=== PATIENT | male | born 1970 | race Caucasian/White ===

== ENCOUNTER 2018-02-14 13:51 | Emergency (ER) | payer OTHER ==
[2018-02-14 14:51] VITALS: BP 106/59
--- NOTE | 2018-02-14 14:57 | UC ---
Hand/Wrist HPI - HPI Summary HPI Summary: Crush injury 6 days ago right third finger---painful to make fist - History Of Current Complaint Chief Complaint: UCUpperExtremity Stated Complaint: FINGER INJURY Time Seen by Provider: 02/14/18 14:56 Hx Obtained From: Patient ?: No Mechanism Of Injury: crush injury Onset/Duration: Sudden Onset, Lasting Days - 6, Still Present Pain Intensity: 5 Pain Scale Used: 0-10 Numeric Character Of Pain: Aching, Throbbing Aggravating Factor(s): Movement Alleviating Factor(s): Nothing Associated Signs And Symptoms: Positive: Swelling Related History: Dominant Hand Right - Allergies/Home Medications Allergies/Adverse Reactions: Allergies Allergy/AdvReac Type Severity Reaction Status Date / Time No Known Allergies Allergy Verified 02/14/18 14:45 PMH/Surg Hx/FS Hx/Imm Hx Previously Healthy: Yes - Surgical History Surgical History: Yes Surgery Procedure, Year, and Place: Menisectomy r knee - Family History Known Family History: Positive: None - Social History Occupation: Employed Full-time Lives: With Family Alcohol Use: None Substance Use Type: None Substance Use Comment - Amount & Last Used: last use 12/10/15 Smoking Status (MU): Heavy Every Day Tobacco Smoker Amount Used/How Often: 1 PPD - Immunization History Most Recent Influenza Vaccination: early Jul 2013 Review of Systems Constitutional: Negative Skin: Negative Eyes: Negative ENT: Negative Respiratory: Negative Cardiovascular: Negative Gastrointestinal: Negative Genitourinary: Negative Motor: Decreased ROM - right third finger Neurovascular: Negative Musculoskeletal: Arthralgia - right 3rd finger Neurological: Negative Psychological: Negative Is Patient Immunocompromised?: No All Other Systems Reviewed And Are Negative: Yes Physical Exam Triage Information Reviewed: Yes Appearance: Well-Appearing, No Pain Distress, Well-Nourished Vital Signs: Initial Vital Signs Temp 98.4 F 02/14/18 14:45 Pulse 65 02/14/18 14:45 Resp 18 02/14/18 14:45 BP 106/59 02/14/18 14:45 Pulse Ox 98 02/14/18 14:45 Vital Signs Reviewed: Yes Eye Exam: Normal Eyes: Positive: Conjunctiva Clear ENT Exam: Normal ENT: Positive: Normal ENT inspection, Hearing grossly normal. Negative: Trismus , Muffled voice, Hoarse voice Dental Exam: Normal Neck exam: Normal Neck: Positive: Supple, Nontender Respiratory Exam: Normal Respiratory: Positive: Chest non-tender, No respiratory distress, No accessory muscle use Cardiovascular Exam: Normal Cardiovascular: Positive: RRR, Pulses Normal, Brisk Capillary Refill Musculoskeletal Exam: Other Musculoskeletal: Positive: ROM Limited @ - right 3rd finger, Edema @ - right third finger Neurological Exam: Normal Neurological: Positive: Alert, Muscle Tone Normal Psychological Exam: Normal Psychological: Positive: Normal Response To Family Skin Exam: Normal Diagnostics - Radiology No standard instances Xray Interpretation: Positive (See Comments) - fusifirm swelling Radiology Interpretation Completed By: Radiologist Hand/Wrist Course/Dx - Course Course Of Treatment: splint,elevation, keflex follow with Dr. Neumann as needed - Differential Dx/Diagnosis Provider Diagnoses: cellulitis right third finger Discharge - Sign-Out/Discharge Documenting (check all that apply): Patient Departure - Discharge Plan Condition: Stable Disposition: HOME Prescriptions: Cephalexin CAP* [Keflex CAP*] 500 mg PO QID #40 cap Patient Education Materials: Cellulitis (ED), Warm Compress or Soak (ED) Referrals: Italo Neumann MD [Primary Care Provider] - If Needed - Billing Disposition and Condition Condition: STABLE Disposition: Home
[2018-02-14] MEDS ORDERED: Tetan/Diph/Pertus SYR(Tdap)* 0.5 ML SYR(BOOSTRIX) use SYR IM ONE (15:02)
--- NOTE | 2018-02-14 15:29 | RAD ---
Indication: Anterior RIGHT third digit pain following crush injury 6 days ago. Comparison: No relevant prior exams available on the [facility] [place]. Technique: 3 views RIGHT third finger REPORT AND IMPRESSION: Fusiform soft tissue swelling. No conspicuous foreign body or subcutaneous emphysema. Negative for fracture or malalignment.
== END 2018-02-14 16:15 | disposition home or self-care (01) ==
LOC: UCEAST 13:51
DX: L03.011 Cellulitis of right finger (principal); Z23 Encounter for immunization; F17.210 Nicotine dependence, cigarettes, uncomplicated
CPT/HCPCS: 73140; 90715; 99212; G0463

== ENCOUNTER 2018-05-31 08:33 | Emergency (ER) | payer OTHER ==
[2018-05-31 08:47] VITALS: BP 104/64
[2018-05-31] MEDS ORDERED: Albuterol 2.5 MG/3 ML NEB.SOL* (0.083%) INH ONE (09:06)
--- NOTE | 2018-05-31 09:10 | ED ---
Respiratory - HPI Summary HPI Summary: cough , chills, in the last several days. cough producitive of greenish sputum. has had some wheezing and dyspnea with activity. this is not normally the case. smoking 1 ppd, - History of Current Complaint Chief Complaint: UCRespiratory Stated Complaint: CONGESTION Time Seen by Provider: 05/31/18 08:59 Hx Obtained From: Patient Onset/Duration: Sudden Onset, Lasting Days Initial Severity: Moderate Current Severity: Moderate Pain Intensity: 3 Character: Cough (Productive) Sputum Amount: Moderate Sputum Color: Yellow Aggravating Factor(s): Deep Breaths Alleviating Factor(s): Nothing Associated Signs and Symptoms: Chest Pain, Wheezing - Risk Factors Status Asthmaticus Risk Factors: Negative Pulmonary Embolism Risk Factors: Negative Cardiac Risk Factors: Negative Pseudomonas Risk Factors: Negative Tuberculosis Risk Factors: Negative - Allergy/Home Medications Allergies/Adverse Reactions: Allergies Allergy/AdvReac Type Severity Reaction Status Date / Time No Known Allergies Allergy Verified 05/31/18 08:48 Home Medications: Home Medications Buprenorphine HCl/Naloxone HCl [Suboxone 12 mg-3 mg Sl Film] 1 film PO DAILY 07/08 [History Confirmed 05/31/18] PMH/Surg Hx/FS Hx/Imm Hx Previously Healthy: Yes Endocrine/Hematology History: Denies: Hx Diabetes, Hx Thyroid Disease Cardiovascular History: Denies: Hx Hypertension Respiratory History: Denies: Hx Asthma, Hx Chronic Obstructive Pulmonary Disease (COPD) GI History: Denies: Hx Ulcer - Surgical History Surgery Procedure, Year, and Place: Menisectomy r knee Infectious Disease History: No Infectious Disease History: Reports: Hx of Known/Suspected MRSA - 3 yrs ago wound Denies: Hx Hepatitis, Hx Human Immunodeficiency Virus (HIV), History Other Infectious Disease, Traveled Outside the [place] in Last 30 Days - Family History Known Family History: Positive: None - Social History Alcohol Use: None Substance Use Type: Reports: None Substance Use Comment - Amount & Last Used: last use 12/10/15 Smoking Status (MU): Heavy Every Day Tobacco Smoker Amount Used/How Often: 1 PPD Review of Systems Positive: Fatigue Eyes: Negative ENT: Negative Cardiovascular: Negative Positive: Shortness Of Breath, Cough Gastrointestinal: Negative Genitourinary: Negative Musculoskeletal: Negative Skin: Negative Neurological: Negative All Other Systems Reviewed And Are Negative: Yes Physical Exam Triage Information Reviewed: Yes Vital Signs On Initial Exam: Initial Vitals Temp Pulse Resp BP Pulse Ox 36.8 C 70 16 104/64 99 05/31/18 08:45 05/31/18 08:45 05/31/18 08:45 05/31/18 08:45 05/31/18 08:45 Vital Signs Reviewed: Yes Appearance: Positive: Well-Appearing Skin: Positive: Warm, Dry Eyes: Positive: Normal ENT: Positive: Normal ENT inspection Neck: Positive: Supple Respiratory/Lung Sounds: Positive: Wheezes Cardiovascular: Positive: Normal Abdomen Description: Positive: Nontender Bowel Sounds: Positive: Present Musculoskeletal: Positive: Normal Neurological: Positive: Normal Diagnostics - Vital Signs Vital Signs Temp Pulse Resp BP Pulse Ox 05/31/18 08:45 36.8 C 70 16 104/64 99 - Laboratory Lab Statement: Any lab studies that have been ordered have been reviewed, and results considered in the medical decision making process. Disposition - Diagnoses Provider Diagnoses: COPD (chronic obstructive pulmonary disease), Acute bronchitis Discharge - Sign-Out/Discharge Documenting (check all that apply): Patient Departure All imaging exams completed and their final reports reviewed: Yes - Discharge Plan Condition: Fair Disposition: HOME Prescriptions: Albuterol HFA INHALER* [Ventolin HFA Inhaler*] 2 puff INH Q6H PRN #1 mdi PRN Reason: Cough Amoxicillin/Clavulanate TAB* [Augmentin TAB 875*] 875 mg PO BID #14 tab Spiriva Inhaler DEVICE* [Tiotropium Inhaler DEVICE*] 0 inh INH DAILY #1 device Tiotropium CAP.INH* [Spiriva CAP.INH*] 1 cap INH DAILY #30 cap.inh Patient Education Materials: Acute Bronchitis (ED), COPD (Chronic Obstructive Pulmonary Disease) (ED) Referrals: Italo Neumann MD [Primary Care Provider] - - Billing Disposition and Condition Condition: FAIR Disposition: Home
--- NOTE | 2018-05-31 09:25 | RAD ---
HISTORY: cough, fever, chills, wheezing COMPARISONS: None VIEWS: 4: Frontal dual-energy and lateral views of the chest. FINDINGS: CARDIOMEDIASTINAL SILHOUETTE: The cardiomediastinal silhouette is normal. SONI: The soni are normal. PLEURA: The costophrenic angles are sharp. No pleural abnormalities are noted. LUNG PARENCHYMA: There is hyperinflation with flattening of the diaphragm and expansion of the AP diameter of the chest. ABDOMEN: The upper abdomen is clear. There is no subphrenic gas. BONES AND SOFT TISSUES: No bone or soft tissue abnormalities are noted. OTHER: None. IMPRESSION: HYPERINFLATION, CONSISTENT WITH COPD. NO ACTIVE CARDIOPULMONARY DISEASE.
== END 2018-05-31 09:50 | disposition home or self-care (01) ==
LOC: UCEAST 08:33
DX: J44.9 Chronic obstructive pulmonary disease, unspecified (principal); F17.200 Nicotine dependence, unspecified, uncomplicated
CPT/HCPCS: 71046; 99212; G0463